=== PATIENT | male | born 1960 | race Caucasian/White ===

== ENCOUNTER 2023-02-16 07:56 | Emergency (ER) | payer MEDICAID ==
[~2023-02-16] VITALS: Ht 172.7 cm; Wt 70.0 kg
[2023-02-16 08:03] VITALS: O2SAT 99
[2023-02-16 09:26] LABS: BASOPHILS % 0.3 % (0.0-2.0); EOSINOPHILS % 0.1 % (0.0-5.0); HEMATOCRIT. 45.2 % (42.0-52.0); LYMPHOCYTES % 7.4 % (20.0-50.0); MEAN CORPUSCULAR HGB CONC 33.3 g/dL (31.0-37.0); MEAN CORPUSCULAR VOLUME 87.2 fL (80.0-94.0); MEAN PLATELET VOLUME 9.6 fl (7.4-10.4); MONOCYTES % 13.4 % (2.0-8.0); NEUTROPHILS % 78.8 % (40.0-76.0); PLATELET 131 x1000/uL (130-400); RED BLOOD CELL COUNT 5.19 mill/uL (4.7-6.1); RED CELL DISTRIBUTION WIDTH 13.9 % (11.6-14.6); WHITE BLOOD COUNT 6.1 x1000/uL (4.5-11.0)
[2023-02-16 09:35] LABS: INR 1.1; PROTHROMBIN TIME 11.3 sec (9.6-11.0)
[2023-02-16 09:38] LABS: CHLORIDE 105 mEq/L (98-107); INDEX HEMOLYSI 1 (1-3); INDEX ICTERIC 1 (1-4); INDEX LIPEMIC 1 (1-3); POTASSIUM 4.1 mEq/L (3.5-5.1); SODIUM 138 mEq/L (136-145)
[2023-02-16 09:47] LABS: ALANINE AMINOTRANSFERASE 42 IU/L (13-61); ALBUMIN 3.5 g/dL (3.4-5.0); ASPARTATE AMINOTRANSFERASE 33 IU/L (15-37); BILIRUBIN TOTAL 0.3 mg/dL (0.1-1.0); CARBON DIOXIDE 29 mEq/L (21-32); CREATININE 1.2 mg/dL (0.6-1.3); GLUCOSE 168 mg/dL (70-105); NT PRO B-TYPE NATRIURETIC PEP 64 pg/mL (5-125); TROPONIN I HIGH SENSITIVITY 6 ng/L (<78); UREA NITROGEN BLOOD 23 mg/dL (7-21)
[2023-02-16] MEDS ORDERED: SODIUM CHLORIDE 0.9% 1,000 ML IV ONE (10:15)
[2023-02-16 11:43] LABS: TROPONIN I HIGH SENSITIVITY 6 ng/L (<78)
[2023-02-16 12:02] VITALS: BP 106/61; PULSE 60; RESP 18; TEMP 98.5
== END 2023-02-16 12:20 | disposition home or self-care (01) ==
LOC: ER 07:56
DX: R55 Syncope and collapse (principal); I10 Essential (primary) hypertension; E78.00 Pure hypercholesterolemia, unspecified
CPT/HCPCS: 99285; 96360; 71045; 80053; 83880; 85025; 85610; 84484; 36415; 93005; J7030